=== PATIENT | female | born 1975 | race Two or more races ===

== ENCOUNTER 2024-04-06 02:18 | Emergency (ER) | payer MEDICAID, SELFPAY ==
--- NOTE | 2024-04-06 02:25 | XR_ITS ---
Examination: CT lumbar spine, without contrast. 2-D sagittal reconstructions. 2-D coronal reconstructions. 3-D reconstructions. Date and time of exam:April 06, 2024 0309 hrs. Indications: Low back pain radiating to the right leg today CTDI: vol (mGy):27.2 DLP: (mGycm):732 Technique: Multiple 1.25 mm axial sections of the lumbar spine without intravenous contrast have been obtained. 2-D sagittal and coronal reconstructions have been obtained. 3-D reconstructions have been obtained. Low dose protocols were performed. One or more of the following dose reduction techniques were used; automated exposure control, adjustment of the mA and/or KV according to patient size, use of iterative reconstruction technique. Findings: Moderate osteopenia No lumbar fracture Moderate disc narrowing L2-L3, L3-L4, L5-S1 L5-S1 2 mm central lumbar disc bulge, bilateral neural foraminal stenosis producing severe left mild right L5 ganglionic compression L4-L5 3 mm central lumbar disc bulge L3-L4 3 mm central lumbar disc bulge Impression: No acute lumbar fracture L5-S1 2 mm central lumbar disc bulge, bilateral neural foraminal stenosis producing severe left mild right L5 ganglionic compression L4-L5, L3-L4 3 mm central lumbar disc bulge
[2024-04-06 02:30] VITALS: BP 123/74; PULSE 110; RESP 18; TEMP 36.9; O2SAT 98
[2024-04-06 02:34] VITALS: PULSE 95; RESP 16; O2SAT 99
[2024-04-06 02:40] VITALS: BMI 29.8
[2024-04-06] MEDS: LIDOCAINE 5% 1 PATCH 2 PATCH TOP (02:54)
--- NOTE | 2024-04-06 04:24 | PD.EDBACK ---
ED Back Injury Pain RME/HPI General Chief Complaint: Back Pain/Injury Stated Complaint: BACK PAIN Time Seen by Provider: 04/06/24 02:25 Arrival date/time: 04/06/24 02:18 RME / HPI RME / HPI Narrative: This section includes all my notes and documentations, including HPI, PE, and ED course. Garrett Menon MD HPI: 48-year-old female here with severe low back pain radiating into the right leg just prior to arrival. No numbness or tingling. No paralysis. No loss of control of bladder or bowels. No saddle numbness. Reports on and off similar symptoms chronically. No other complaints. ROS: All negative except as documented in HPI. Physical Exam: General: Alert and oriented. In severe pain. Eyes: Conjunctivae and lids clear. ENT: No nasal congestion. Neck: Supple. Heart: RRR. Lungs: No respiratory distress. Good air movement. No rhonchi, wheezing, rales. Abdomen: Soft and nontender. Normal bowel sounds. No distension. No rebound or guarding. Back: Equivocal midline lumbar tenderness with limited range of motion due to pain. Equivocal right straight leg raise. Legs: No clubbing, cyanosis, edema. Skin: Warm and dry. Neuro: Alert and oriented X 3. No peripheral motor deficits. My review of the lumbar spine CT report is disc bulges at L2-L3 and L3-L4 and L4-L5 and L5-S1. At this point, diagnoses include lumbar spinal stenoses. Treatment here included morphine 10 mg IM. She started to feel better. Recommended more outpatient care. Based on my best medical judgment, made decision no further evaluation or treatment indicated at this time. Patient understands and agrees to the discharge instructions customized and printed, see below. Discharge Instructions from Dr. Menon: --After evaluation, we are dealing with Sciatica (same as Lumbar Radiculopathy or Spinal Stenosis) where pinched nerve(s) is causing your symptoms.? --This condition is difficult because normal pain medications don?t work very well on nerve pain. --Despite the pain, try to resume your normal chores and activities.? Because inactivity is terrible for this condition.? And activity won?t make your condition worse.? Use a cane of stick in your left hand to help stand and walk.? --Use Ibuprofen and Tylenol with codeine and [id number] lidocaine patches as needed.? Don't expect the pain to go away completely, hoping to take the edge off.?? --When resting and sleeping, try left sided position (with your knees to your chest and bending forward).? This can take some pressure off the nerve and help your pain. --Apply ice or heat if helpful. --See a private doctor (outside the ER) on 04/07/2024. Ask to help you get more care not available here in the ER.? Such as MRI imaging, physical therapy, and referrals to see specialists.? Some choose to have surgery for this condition. But you need to have MRI imaging to confirm the diagnosis and assess the severity to get the best treatments. --Seek immediate medical care with paralysis in your foot, losing control of your bladder or bowels, saddle numbness (anal numbness), or with any concerns.?? Garrett Menon MD Related Data Home Medications ?Medication ?Instructions ?Recorded ?Confirmed Sitagliptin Phos/Metformin Hcl * tab PO BIDWM #0 tabs 07/26/15 (JANUMET *) gemfibrozil 600 mg tablet (Lopid) 600 mg PO BID #0 tabs 07/26/15 glimepiride 4 mg tablet (Amaryl) 2 tab PO QDAY #0 tabs 07/26/15 Previous Rx's ?Medication ?Instructions ?Recorded hydrocodone 5 mg-acetaminophen 325 1 tab PO Q6H PRN pain #20 tabs 03/09/21 mg tablet acetaminophen 300 mg-codeine 30 mg 2 tab PO TID PRN pain #20 tabs 04/06/24 tablet Allergies Allergy/AdvReac Type Severity Reaction Status Date / Time amoxicillin AdvReac Mild Gastrointestinal Verified 04/06/24 03:01 Upset Course Quality Measures none Orders Category Date Time Status CT lumbar spine wo con Stat Exams 04/06/24 02:25 Taken Lidocaine 5% Patch Med 04/06/24 02:47 Discontinued 2 patch TOP X1 ONE Morphine Inj Med 04/06/24 04:24 Discontinued 10 mg IM X1 ONE Vital Signs Vital signs: Vital Signs Temperature 98.4 F 04/06/24 02:30 Pulse Rate 110 H 04/06/24 02:30 Respiratory Rate 18 04/06/24 02:30 Blood Pressure 123/74 04/06/24 02:30 Pulse Oximetry (%) 98 04/06/24 02:30 Oxygen Delivery Method Room Air 04/06/24 02:30 Back Pain / Injury Patient data External records reviewed:: [facility] previous records Clinical information provided by:: patient and EMS Social determinants that could affect healthcare access:: none Patient has the following chronic illnesses:: Hypertension and diabetes How is presenting disease/condition affected by chronic disease/condition?: uneffected by Evaluation data The following diagnostics were reviewed and interpreted by me:: radiology exam(s) Lab and/or radiology exams considered but not ordered:: None Interpretation Summary: Lumbar spinal stenoses Medications / Prescriptions Medications or Prescriptions considered but not ordered:: None Medication administrations:: Medication Administration History Discontinued Medications Lidocaine (Lidocaine 5% 1 Patch) 2 patch TOP X1 ONE Stop: 04/06/24 02:48 Last Admin: 04/06/24 02:54 Dose: 2 patch Documented By: MARÍA Morphine Sulfate (Morphine Sulf Inj 10 Mg/Ml Vial) 10 mg IM X1 ONE Stop: 04/06/24 04:25 Morphine and lidocaine patches Consultations Consultation(s) initiated? (list below): No Diagnosis Differential diagnosis back pain/injury: lumbar radiculopathy, sciatica and strain of lumbar region Most likely diagnosis given after review of the tests above:: Lumbar radiculopathy Admission Indicated Admission indicated?: not indicated Explain why admission is indicated or not indicated:: Admission criteria not met Admission Request Was there a request for admission?: No Disposition Plan Disposition Plan: Discharge Discharge Attestation Discharge Attestation: The patient and all family members were given an opportunity to ask questions and understood the discharge instructions. Discharge instructions specifically effects, indications for sooner follow up or return to the emergency department, and the expected course of current diagnosis. Patient condition: Stable Discharge Plan Plan Patient Disposition: HOME (Self Care) Prescriptions/Referrals Prescriptions/Med Rec: New acetaminophen-codeine 300-30 mg tablet 2 tab PO TID MDD 6 PRN (Reason: pain) Qty: 20 0RF No Action gemfibrozil [Lopid] 600 MG tablet 600 mg PO BID Qty: 0 glimepiride [Amaryl] 4 MG tablet 2 tab PO QDAY Qty: 0 Sitagliptin Phos/Metformin Hcl * (JANUMET *) 1 TAB tablet PO BIDWM Qty: 0 hydrocodone-acetaminophen 5-325 mg tablet 1 tab PO Q6H MDD 4 PRN (Reason: pain) Qty: 20 0RF Referrals: Devora Chow, [employer] [Primary Care Provider] - In 1 week Problem List Clinical Impression: Sciatica Patient/Caregiver Discharge Instructions Discharge Activity: activity as tolerated Education Materials: ED Sciatica Additional Instructions: Discharge Instructions from Dr. Menon: --After evaluation, we are dealing with Sciatica (same as Lumbar Radiculopathy or Spinal Stenosis) where pinched nerve(s) is causing your symptoms.? --This condition is difficult because normal pain medications don?t work very well on nerve pain. --Despite the pain, try to resume your normal chores and activities.? Because inactivity is terrible for this condition.? And activity won?t make your condition worse.? Use a cane of stick in your left hand to help stand and walk.? --Use Ibuprofen and Tylenol with codeine and [id number] lidocaine patches as needed.? Don't expect the pain to go away completely, hoping to take the edge off.?? --When resting and sleeping, try left sided position (with your knees to your chest and bending forward).? This can take some pressure off the nerve and help your pain. --Apply ice or heat if helpful. --See a private doctor (outside the ER) on 04/07/2024. Ask to help you get more care not available here in the ER.? Such as MRI imaging, physical therapy, and referrals to see specialists.? Some choose to have surgery for this condition. But you need to have MRI imaging to confirm the diagnosis and assess the severity to get the best treatments. --Seek immediate medical care with paralysis in your foot, losing control of your bladder or bowels, saddle numbness (anal numbness), or with any concerns.?? Print Language: Vietnamese Stand Alone Forms: Brenda Award Info., Patient Portal Info Letter
[2024-04-06] MEDS: MORPHINE SULF INJ 10 MG/ML VIAL IM (04:28)
[2024-04-06 05:05] VITALS: BP 122/70; PULSE 100; RESP 18; TEMP 36.7; O2SAT 98
== END 2024-04-06 05:06 | disposition home or self-care (01) ==
PROVIDERS: Emergency Provider Emergency Medicine; PCP Registered Nurse Community Health
DX: M48.07 Spinal stenosis, lumbosacral region (principal); M54.31 Sciatica, right side
CPT/HCPCS: 72131; 96372; 99284; J2270

== ENCOUNTER 2024-04-06 05:11 | Emergency (ER) | payer MEDICAID, SELFPAY ==
[2024-04-06 05:11] VITALS: BMI 29.8
[2024-04-06 05:22] VITALS: BP 100/62; PULSE 120; RESP 19; TEMP 36.4; O2SAT 96
== END 2024-04-06 05:42 | disposition left against medical advice (07) ==
LOC: SERX 05:35
PROVIDERS: Emergency Provider Emergency Medicine; PCP Registered Nurse Community Health
DX: Z53.21 Procedure and treatment not carried out due to patient leaving prior to being seen by health care provider (principal)
CPT/HCPCS: 99281